=== PATIENT | female | born 1945 | race Caucasian/White ===

== ENCOUNTER 2018-03-01 10:21 | Emergency (ER) | payer MEDICARE, MEDICAID ==
[~2018-03-01] VITALS: Ht 160 cm; Wt 83.9 kg
[~2018-03-01 10:21] MED LIST: CARISOPRODOL350 MG PO; LISINOPRIL-HCT1 EACH PO; MS CONTIN15 MG PO; MS CONTIN30 MG PO; NAPROXEN500 MG PO; ROXICODONE5 MG PO; SERTRALINE HCL50 MG PO; TRAMADOL HCL50 MG PO; VITAMIN D250000 UNIT PO; XARELTO10 MG PO
[2018-03-01] MEDS ORDERED: GABAPENTIN100 MG PO (10:54)
[2018-03-01] MEDS ORDERED: MELOXICAM15 MG PO (10:54)
[2018-03-01] MEDS ORDERED: AUGMENTIN 875-1 EACH PO (12:58)
== END 2018-03-01 13:10 | disposition home or self-care (01) ==
LOC: ED 10:21 → ER 10:22
PROC: 0HQGXZZ Repair Left Hand Skin, External Approach (ICD-10-PCS; principal; 2018-03-01)
PROC: 0HQDXZZ Repair Right Lower Arm Skin, External Approach (ICD-10-PCS; principal; 2018-03-01)
DX: S61.255A Open bite of left ring finger without damage to nail, initial encounter (principal); I10 Essential (primary) hypertension; Z79.899 Other long term (current) drug therapy; Z23 Encounter for immunization; W54.0XXA Bitten by dog, initial encounter
CPT/HCPCS: 12005; 90471; 90715; 99283

== ENCOUNTER 2018-07-13 18:17 | Emergency (ER) | payer MEDICARE, MEDICAID ==
[~2018-07-13] VITALS: Ht 160 cm; Wt 82.5 kg
[~2018-07-13 18:17] MED LIST changes: +AUGMENTIN 875-1 EACH PO; +GABAPENTIN100 MG PO; +MELOXICAM15 MG PO
[2018-07-13] MEDS ORDERED: AUGMENTIN 875-1 EACH PO (19:58)
[2018-07-13] MEDS ORDERED: NORCO 5-325 TA1 EACH PO (19:58)
== END 2018-07-13 20:10 | disposition home or self-care (01) ==
LOC: ED 18:17
PROC: 0CQ1XZZ Repair Lower Lip, External Approach (ICD-10-PCS; principal; 2018-07-13)
PROC: 0CQ0XZZ Repair Upper Lip, External Approach (ICD-10-PCS; 2018-07-13)
DX: S01.551A Open bite of lip, initial encounter (principal); S01.25XA Open bite of nose, initial encounter; I10 Essential (primary) hypertension; Z79.899 Other long term (current) drug therapy; W54.0XXA Bitten by dog, initial encounter
CPT/HCPCS: 12011; 40650; 99282-25

== ENCOUNTER 2021-08-12 13:52 | Emergency (ER) | payer MEDICARE, MEDICAID ==
[~2021-08-12] VITALS: Ht 160 cm; Wt 82.5 kg
[~2021-08-12 13:52] MED LIST changes: +NORCO 5-325 TA1 EACH PO
--- OUTSIDE RECORDS SUMMARY | 2021-08-12 13:56 | XMS ---
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 Conner has no Care Guidelines for this patient. [facility]: Visits indicate total known visits. ED/C VISIT TRACKING (12 MO.) 08/12/2021 13:53 [facility] [place] TYPE: Emergency COMPLAINT: - FACE LACERATION 07/20/2021 10:59 [facility] [place] TYPE: Emergency COMPLAINT: - ANIMAL BITE INPATIENT VISIT TRACKING (12 MO.) No inpatient visits to display in this time frame [email or web address]
== END 2021-08-12 15:58 | disposition home or self-care (01) ==
LOC: ED 13:52
DX: S01.81XA Laceration without foreign body of other part of head, initial encounter (principal); I10 Essential (primary) hypertension; M19.90 Unspecified osteoarthritis, unspecified site; Z79.899 Other long term (current) drug therapy; X58.XXXA Exposure to other specified factors, initial encounter
CPT/HCPCS: 12011; 99282-25

== ENCOUNTER 2023-10-15 12:28 | Day surgery (SDC) | payer MEDICARE, MEDICAID ==
[~2023-10-15] VITALS: Ht 162.6 cm; Wt 82.6 kg
[~2023-10-15 12:28] MED LIST changes: +CELEBREX100 MG PO; +COZAAR50 MG PO; +CYMBALTA60 MG PO; +IBLOOD GLUCOSE TEST STRIP 1 EA TEST VI PRN; +LACTATED RINGER'S 1,000 ML IV SCH; +LIDOCAINE HCL 1% 5 ML SDV INJ ONE; +MIDAZOLAM HCL 5 MG/5 ML VIAL IV PRN; +fentaNYL citrate 100 MCG/2 ML VIAL IV PRN
[2023-10-15] MEDS ORDERED: CEFAZOLIN SODIUM 2 GM/20 ML SYR IV SCH (12:49)
[2023-10-15] MEDS ORDERED: ASPIRIN81 MG PO (13:05)
[2023-10-15 13:13] VITALS: BP 192/89
[2023-10-15] MEDS ORDERED: fentaNYL citrate 100 MCG/2 ML VIAL ONE (14:26)
[2023-10-15] MEDS ORDERED: MIDAZOLAM HCL 5 MG/5 ML VIAL ONE (14:26)
--- NOTE | 2023-10-15 15:31 | NUR ---
10/15/23 1531 Zahira Felipe 1521 PT ARRIVES TO THE PACU WITH RESPRATIONS EVEN AND UNLABORED. PT LAYING ON LEFT SIDE AND REPORTS NO PAIN OR NAUSEA. PT RESTING WITH EYES CLOSED. PT EASILY WAKES WITH VERBAL STIMULI.
[2023-10-15 16:01] VITALS: BP 175/99
--- NOTE | 2023-10-15 17:25 | NUR ---
LE 1621 PATIENT BACK TO DAY SURGERY. PATIENT DROWSY. PATIENT BREATHING EQUAL AND UNLABORED. OXYGEN SATURATIONS ABOVE 90% ON ROOM AIR. PATIENT DENIES PAIN AND IS A BIT NAUSEATED. LIGHTS LOWERED. PATIENT RESTING AT THIS TIME. CALL LIGHT WITHIN REACH. NO FUTHER NEEDS. LE 1710 PATIENT CALLED. PATIENT DENIES BEING NAUSEATED. ALERT AND ORIENTED. PATIENT WOULD LIKE TO GO HOME. IV D/C'D WNL. DISCHARGE INSTRUCTIONS GIVEN. NO QUESITONS. PATIENT WHEELED OUT OF FACILITY TO PRIVATE AUTO. NO FUTHER NEEDS.
--- NOTE | 2023-10-17 09:10 | OR ---
[facility] [address] [place], [place] [address] Signed DATE OF OPERATION: 10/15/2023 SURGEON: Alexandru Majano MD PREOPERATIVE DIAGNOSES: 1. Episodes of diarrhea without associated bleeding. 2. Known history of diverticulosis, colonoscopy in 2011. POSTOPERATIVE DIAGNOSES: 1. Sigmoid and left-sided diverticulosis (extensive). 2. No evidence of polyps or cancer. PROCEDURE: 1. Total colonoscopy to cecum with biopsies including cecum, right colon transverse colon, left colon, sigmoid and rectum. ANESTHESIA: Intravenous sedation; fentanyl 200 mcg and Versed 10 mg. INDICATIONS: This 78-year-old white woman is a patient of Dr. White. She underwent colonoscopy by me greater than 10 years ago in 2011. At that time, she had scattered diverticula of the colon. She has no family history of colon cancer. No complaints of bleeding, but has had diarrhea. She notes that grapes and other fruit tend to make things worse. She has no blood per rectum. She does have hypertension. She is admitted at this time to undergo surveillance colonoscopy as well as diagnostic colonoscopy on the basis of her "diarrhea." She understands and wished to proceed. FINDINGS: The prep was good. Complete colonoscopy was undertaken to the cecum without question. Passage to the sigmoid and left colon was somewhat challenging due to discomfort, but was managed well with intravenous medication. Complete intubation of the colon was noted. There was no evidence of polyps, colitis, or cancer, though she did have numerous diverticula of the sigmoid and left colon. DESCRIPTION OF PROCEDURE: The patient was brought to the endoscopy suite and placed in lateral decubitus position given intravenous sedation to the point of slurred speech and nystagmus. Digital rectal examination was normal. Electronically Signed By: ALEXANDRU MAJANO MD 10/17/23 0910 PATIENT NAME: MARILY BOWMAN OPERATIVE REPORT DATE OF : 49 REPORT #: [id number] PHYSICIAN: ALEXANDRU MAJANO MD PCP: JOVANNY WHITE DO REPORT IS CONFIDENTIAL AND NOT TO BE RELEASED WITHOUT AUTHORIZATION [facility] [address], [place] [address] Signed An Olympus video colonoscope was passed into the rectum and manipulated into the sigmoid. Immediately noted was significant the patient response to discomfort, which prompted additional sedation to be given serially. Ultimately, the scope was passed beyond the sigmoid and to the right colon and ultimately cecum. She is rather sensitive as regard passage of the scope throughout. Biopsies were taken of the cecum, though did appear normal. Further withdrawal throughout allowed for random biopsies throughout including the right colon, transverse, left colon, sigmoid and rectum. Retroflexed view was normal. The only finding of note was diverticular disease of the sigmoid. Plan uncertain as to this etiology of her diarrhea from time to time, likely related to diverticulosis. We would recommend a high-fiber diet. Repeat colonoscopy in 10 years or sooner if clinically indicated. She will return to the ongoing care of Dr. White. MD NGUYEN Ramsey/RADHA /[id number] Copies: ~ Electronically Signed By: ALEXANDRU MAJANO MD 10/17/23 0910 PATIENT NAME: MARILY BOWMAN OPERATIVE REPORT DATE OF : 49 REPORT #: [id number] PHYSICIAN: ALEXANDRU MAJANO MD PCP: JOVANNY WHITE DO REPORT IS CONFIDENTIAL AND NOT TO BE RELEASED WITHOUT AUTHORIZATION
--- NOTE | 2023-10-22 11:04 | PATH ---
[facility] [address] [place], [place] [address] Signed SPECIMEN(S): A CECUM COLON BIOPSY SPECIMEN(S): B ASCENDING/RIGHT COLON BIOPSY SPECIMEN(S): C TRANSVERSE COLON BIOPSY SPECIMEN(S): D DESCENDING/LEFT COLON BIOPSY SPECIMEN(S): E RECTUM BIOPSY SPECIMEN SOURCE: A. CECUM COLON BIOPSY B. ASCENDING/RIGHT COLON BIOPSY C. TRANSVERSE COLON BIOPSY D. DESCENDING/LEFT COLON BIOPSY E. RECTUM BIOPSY CLINICAL HISTORY: Diarrhea. FINAL PATHOLOGIC DIAGNOSIS: A. Cecum, biopsies: - Unremarkable colonic mucosa, negative for colitis, granulomas or dysplasia. B. Ascending/right colon, biopsies: - Unremarkable colonic mucosa, negative for colitis, granulomas or dysplasia. C. Transverse colon, biopsies: - Unremarkable colonic mucosa, negative for colitis, granulomas or dysplasia. D. Ascending/left colon, biopsy: - Unremarkable colonic mucosa, negative for colitis, granulomas or dysplasia. E. Rectum, biopsies: - Unremarkable colonic mucosa, negative for colitis, granulomas or dysplasia. AMB MICROSCOPIC EXAMINATION: Histologic sections of all submitted blocks are examined by light microscopy. These findings, together with the gross examination, support the pathologic diagnosis. GROSS DESCRIPTION: A. The specimen, labeled and designated "Ric Luna, 1." and designated on the requisition "cecum biopsy," is received in formalin and consists of two parkinson soft tissue fragments that measure 0.4 and 0.4 cm in greatest dimension. The specimen is entirely submitted in (A1). B. The specimen, labeled and designated "Jeremy, C, 2." and designated on the requisition "#2" and designated on the requisition "transverse biopsy," is PATIENT NAME: MARILY LUNA PATHOLOGY DATE OF : 49 REPORT #: [id number] PHYSICIAN: MICHELLE BROOKS PCP: JOVANNY WHITE DO REPORT IS CONFIDENTIAL AND NOT TO BE RELEASED WITHOUT AUTHORIZATION [facility] [address] [place], [place] [address] Signed received in formalin and consists of three parkinson soft tissue fragments that measure 0.1-0.3 cm in greatest dimension. The specimen is entirely submitted in (B1). C. The specimen, labeled and designated "Jeremy, C, 3." and designated on the requisition "transverse biopsy," is received in formalin and consists of two parkinson soft tissue fragments that measure each 0.4 cm in greatest dimension. The specimen is entirely submitted in (C1). D. The specimen, labeled and designated "Jeremy, C, 4." and designated on the requisition "descending/left biopsy," is received in formalin and consists of one parkinson soft tissue fragment that is 0.4 cm in greatest dimension. The specimen is entirely submitted in (D1). E. The specimen, labeled and designated "Jeremy, C, 5." and designated on the requisition "rectum biopsy," is received in formalin and consists of two parkinson soft tissue fragments that measure 0.2 and 0.3 cm in greatest dimension. The specimen is entirely submitted in (E1). FB (under the direct supervision of a pathologist) The Gross Description was prepared using a voice recognition system. The report was reviewed for accuracy; however, sound-alike word errors, addition and/or deletions may occur. If there is any question about this report, please contact Client Services. ADDITIONAL NOTES: Immunohistochemical and/or in situ hybridization studies if performed in this case included appropriate positive controls that reacted as expected. This test was developed and its performance characteristics determined by [facility]. It has not been cleared or approved by the U.S. Food and Drug Administration. The FDA has determined that such clearance or approval is not necessary. This test is used for clinical purposes. It should not be regarded as investigational or for research. [facility] is certified under the Clinical Laboratory Improvement Amendments of 1988 (CLIA) as qualified to perform high complexity clinical laboratory testing. PERFORMING LABORATORY: Technical component was performed by [facility], [address] [place] [id number] (CLIA# [id number]). Professional interpretation was performed by [facility] - [facility] [address] [facility] [id number] Diagnostician: Yvonne Cardenas MD PATIENT NAME: MARILY LUNA PATHOLOGY DATE OF : 49 REPORT #: [id number] PHYSICIAN: MICHELLE BROOKS PCP: JOVANNY WHITE DO REPORT IS CONFIDENTIAL AND NOT TO BE RELEASED WITHOUT AUTHORIZATION [facility] [address] [place] [id number] Signed Pathologist Electronically Signed 10/22/2023 Copies: ~ PATIENT NAME: MARILY LUNA PATHOLOGY DATE OF : 49 REPORT #: [id number] PHYSICIAN: MICHELLE PATHOLOGY PCP: JOVANNY WHITE DO REPORT IS CONFIDENTIAL AND NOT TO BE RELEASED WITHOUT AUTHORIZATION
== END 2023-10-15 17:10 | disposition home or self-care (01) ==
LOC: OPS 12:28 → DS 12:28 → OPS 13:00
PROVIDERS: ATTEND Surgery
PROC: 0DBL8ZX Excision of Transverse Colon, Via Natural or Artificial Opening Endoscopic, Diagnostic (ICD-10-PCS; 2023-10-15)
PROC: 0DBN8ZX Excision of Sigmoid Colon, Via Natural or Artificial Opening Endoscopic, Diagnostic (ICD-10-PCS; 2023-10-15)
PROC: 0DBP8ZX Excision of Rectum, Via Natural or Artificial Opening Endoscopic, Diagnostic (ICD-10-PCS; 2023-10-15)
PROC: 0DBF8ZX Excision of Right Large Intestine, Via Natural or Artificial Opening Endoscopic, Diagnostic (ICD-10-PCS; 2023-10-15)
PROC: 0DBG8ZX Excision of Left Large Intestine, Via Natural or Artificial Opening Endoscopic, Diagnostic (ICD-10-PCS; principal; 2023-10-15 14:00)
DX: Z12.11 Encounter for screening for malignant neoplasm of colon (principal); K57.30 Diverticulosis of large intestine without perforation or abscess without bleeding
CPT/HCPCS: 88305; 99153; G0500; J0690; J2250; J3010; J7121

== ENCOUNTER 2024-12-07 12:52 | Emergency (ER) | payer MEDICARE, OTHER ==
[~2024-12-07] VITALS: Ht 160 cm; Wt 74.5 kg
[~2024-12-07 12:52] MED LIST changes: +ASPIRIN81 MG PO; -IBLOOD GLUCOSE TEST STRIP 1 EA TEST VI PRN; -LACTATED RINGER'S 1,000 ML IV SCH; -LIDOCAINE HCL 1% 5 ML SDV INJ ONE; -MIDAZOLAM HCL 5 MG/5 ML VIAL IV PRN; -fentaNYL citrate 100 MCG/2 ML VIAL IV PRN
[2024-12-07] MEDS ORDERED: AMLODIPINE BESYL5 MG PO (13:19)
[2024-12-07] MEDS ORDERED: OMEPRAZOLE20 MG PO (13:20)
[2024-12-07] MEDS ORDERED: GABAPENTIN300 MG PO (13:20)
[2024-12-07] MEDS ORDERED: IRBESARTAN150 MG PO (13:20)
[2024-12-07] MEDS ORDERED: CELECOXIB100 MG PO (13:20)
[2024-12-07 13:46] LABS: BASOPHILS 0.2 % (0.1-1.2); EOSINOPHILS 0.8 % (0.7-5.8); HEMOGLOBIN 11.5 g/dL (11.2-15.7); LYMPHOCYTES 11.8 % (19.3-51.7); MCH 31.3 PG (25.6-32.2); MCHC 32.9 g/dL (32.2-35.5); MCV 95.1 fL (79.4-94.8); MONOCYTES 6.1 % (4.7-12.5); NEUTROPHILS 80.8 % (34.0-71.1); PLATELET COUNT 215 K/uL (182-369); RBC 3.68 M/uL (3.93-5.22)
[2024-12-07 14:03] LABS: ALBUMIN/GLOBULIN RATIO 1.03 (1.1-2.4); ALCOHOL, MEDICAL <3 ng/dL (<3); ALKALINE PHOSPHATASE 89 U/L (46-116); ALT (SGPT) 22 U/L (14-59); ANION GAP 11.9 (7-21); AST (SGOT) 23 U/L (15-37); BILIRUBIN, TOTAL 0.7 mg/dL (0.2-1.0); BUN/CREATININE RATIO 27.19 (6.0-28.6); CALCIUM 8.8 mg/dL (8.5-10.1); CARBON DIOXIDE 29 mmol/L (21-32); CHLORIDE 107 mmol/L (98-107); CREATINE KINASE 284 U/L (26-192); CREATININE, SERUM 1.14 mg/dL (0.55-1.02); GLOMERULAR FILTRATION RATE,EST 50 mL/min (>60); POTASSIUM 3.9 mmol/L (3.5-5.1); PROTEIN, TOTAL 5.9 g/dL (6.4-8.2); UREA NITROGEN 31 mg/dL (7-18)
[2024-12-07 14:28] LABS: ABO A; ANTIBODY SCREEN NEGATIVE; RH POSITIVE
[2024-12-07] MEDS ORDERED: IBUPROFEN 400 MG TAB PO ONE (15:15)
[2024-12-07] MEDS ORDERED: HYDROCODONE/ACETA 5/325 TAB PO ONE (15:15)
[2024-12-07] MEDS ORDERED: ONDANSETRON 4 MG TAB ODT SL ONE (15:15)
[2024-12-07] MEDS ORDERED: LIDOCAINE & ANTACID 35 ML BTL PO ONE (15:15)
[2024-12-07] MEDS ORDERED: ONDANSETRON 4 MG HOME.PACK SL ONE (16:45)
[2024-12-07] MEDS ORDERED: HYDROCODONE BIT/ACETAMINOPHEN 5/325 MG 1 TAB HOME.PACK PO ONE (16:45)
[2024-12-07 16:52] VITALS: BP 129/69
== END 2024-12-07 16:54 | disposition home or self-care (01) ==
LOC: ED 12:52
PROVIDERS: Emergency Medicine
DX: S06.6X1A Traumatic subarachnoid hemorrhage with loss of consciousness of 30 minutes or less, initial encounter (principal); K76.9 Liver disease, unspecified; K86.9 Disease of pancreas, unspecified; I10 Essential (primary) hypertension; Y93.52 Activity, horseback riding; Z79.899 Other long term (current) drug therapy
CPT/HCPCS: 36415; 70450; 71260; 72125; 74177; 80053; 80307; 82550; 83605; 85025; 86850; 86900; 86901; 99284-25; A9270; G0480; Q9967

== ENCOUNTER 2025-03-03 13:18 | Emergency (ER) | payer OTHER, MEDICARE ==
[~2025-03-03] VITALS: Ht 160 cm; Wt 77.0 kg
[~2025-03-03 13:18] MED LIST changes: +AMLODIPINE BESYL5 MG PO; +CELECOXIB100 MG PO; -CYMBALTA60 MG PO; +DULOXETINE HCL60 MG PO; +GABAPENTIN300 MG PO; +IRBESARTAN150 MG PO; +OMEPRAZOLE20 MG PO
[2025-03-03] MEDS ORDERED: ARIPIPRAZOLE2 MG PO (13:37)
[2025-03-03] MEDS ORDERED: HYDROmorphone HCL 1 MG/ML SYR IV PRN (15:00)
[2025-03-03] MEDS ORDERED: HYDROCODONE/APAP 10/325 1 TAB PO ONE (15:15)
[2025-03-03 18:10] VITALS: BP 155/73
== END 2025-03-03 18:11 | disposition home or self-care (01) ==
LOC: ED 13:18
DX: M53.3 Sacrococcygeal disorders, not elsewhere classified (principal); I10 Essential (primary) hypertension; Z79.899 Other long term (current) drug therapy
CPT/HCPCS: 51798; 72148; 72192; 73552; 99283-25; A9270

== ENCOUNTER 2025-03-07 11:42 | Emergency (ER) | payer MEDICARE ==
[~2025-03-07] VITALS: Ht 160 cm; Wt 81.6 kg
[~2025-03-07 11:42] MED LIST changes: +ARIPIPRAZOLE2 MG PO
--- OUTSIDE RECORDS SUMMARY | 2025-03-07 11:49 | XMS ---
PreManage Notification: MARILY BOWMAN Security Obstetrics Scrub Nurse Events No recent Security Events currently on file CRITERIA MET - [facility] - 2 Visits in 30 Days CARE PROVIDERS There are no care providers on record at this time. Conner has no Care Guidelines for this patient. Patrick VISIT COUNT (12 MO.) 3 [facility] TOTAL 3 NOTE: Visits indicate total known visits. ED/[facility] VISIT TRACKING (12 MO.) 03/07/2025 11:43 [facility] [place] TYPE: Emergency COMPLAINT: - BACK PAIN 03/03/2025 13:19 [facility] [place] TYPE: Emergency COMPLAINT: - FLANK PAIN DIAGNOSES: - Dorsalgia, unspecified - Essential (primary) hypertension - Other chcf (current) drug therapy - Sacrococcygeal disorders, not elsewhere classified 12/07/2024 12:54 [facility] [place] TYPE: Emergency COMPLAINT: - LEG INJURY DIAGNOSES: - Activity, horseback riding - Disease of pancreas, unspecified - Essential (primary) hypertension - Headache, unspecified - Liver disease, unspecified - Other chcf (current) drug therapy - Traumatic subarachnoid hemorrhage with loss of consciousness of 30 minutes or less, initial encounter INPATIENT VISIT TRACKING (12 MO.) No inpatient visits to display in this time frame [id number]
[2025-03-07] MEDS ORDERED: HYDROCODON-ACE1 EA10 PO (13:24)
[2025-03-07] MEDS ORDERED: METHYLPREDNISOLO4 M1 PO (13:24)
[2025-03-07] MEDS ORDERED: predniSONE 20 MG TAB PO ONE (13:30)
[2025-03-07] MEDS ORDERED: HYDROCODONE/ACETA 5/325 TAB PO ONE (13:30)
[2025-03-07 13:37] VITALS: BP 135/73
== END 2025-03-07 13:45 | disposition home or self-care (01) ==
LOC: ED 11:42
DX: M54.31 Sciatica, right side (principal); M54.9 Dorsalgia, unspecified; I10 Essential (primary) hypertension; Z79.899 Other long term (current) drug therapy
CPT/HCPCS: 99283; J7512

== ENCOUNTER 2025-03-12 10:07 | Emergency (ER) | payer MEDICARE ==
[~2025-03-12] VITALS: Ht 160 cm; Wt 78.6 kg
[~2025-03-12 10:07] MED LIST changes: +HYDROCODON-ACE1 EA10 PO; +METHYLPREDNISOLO4 M1 PO
--- OUTSIDE RECORDS SUMMARY | 2025-03-12 10:14 | XMS ---
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 Conner has no Care Guidelines for this patient. Patrick VISIT COUNT (12 MO.) [address] [facility] [address] [place] [facility] TOTAL 4 NOTE: Visits indicate total known visits. ED/[facility] VISIT TRACKING (12 MO.) 03/12/2025 10:07 [facility] [place] TYPE: Emergency COMPLAINT: - BACK PAIN 03/07/2025 11:43 [facility] [place] TYPE: Emergency COMPLAINT: - BACK PAIN DIAGNOSES: - Dorsalgia, unspecified - Essential (primary) hypertension - Other detention (current) drug therapy - Sciatica, right side 03/03/2025 13:19 [facility] [place] TYPE: Emergency COMPLAINT: - FLANK PAIN DIAGNOSES: - Dorsalgia, unspecified - Essential (primary) hypertension - Other sand blaster (current) drug therapy - Sacrococcygeal disorders, not elsewhere classified 12/07/2024 12:54 [facility] [place] TYPE: Emergency COMPLAINT: - LEG INJURY DIAGNOSES: - Activity, horseback riding - Disease of pancreas, unspecified - Essential (primary) hypertension - Headache, unspecified - Liver disease, unspecified - Other sand blaster (current) drug therapy - Traumatic subarachnoid hemorrhage with loss of consciousness of 30 minutes or less, initial encounter INPATIENT VISIT TRACKING (12 MO.) No inpatient visits to display in this time frame [email or web address]
[2025-03-12 12:31] VITALS: BP 197/99
== END 2025-03-12 11:50 | disposition left against medical advice (07) ==
LOC: ED 10:07
DX: Z53.21 Procedure and treatment not carried out due to patient leaving prior to being seen by health care provider (principal)